=== PATIENT | female | born 1955 ===

== ENCOUNTER 2019-10-28 11:57 | Inpatient (IN) | payer MEDICARE ==
[~2019-10-28] VITALS: Ht 152.4 cm; Wt 86.6 kg
[2019-10-28 13:16] VITALS: BP 144/85
[2019-10-28] MEDS ORDERED: TRAZ50TA66 PO (14:00)
[2019-10-28] MEDS ORDERED: ALEN70TA3 PO (14:00)
[2019-10-28] MEDS ORDERED: MONT10TA11 PO (14:00)
[2019-10-28] MEDS ORDERED: VENL150C6 PO (14:00)
[2019-10-28] MEDS ORDERED: CETI-158 PO (14:00)
[2019-10-28] MEDS ORDERED: BUSP5TAB2 PO (14:00)
[2019-10-28] MEDS ORDERED: ZOLP-413 PO (14:00)
[2019-10-28] MEDS ORDERED: BIFI4CAP PO (14:00)
[2019-10-28] MEDS ORDERED: ERGO500017 PO (14:00)
[2019-10-28] MEDS ORDERED: OMEP-110 PO (14:00)
[2019-10-28] MEDS ORDERED: ALPR0.5T10 PO (14:00)
[2019-10-28] MEDS ORDERED: LEVO75TA5 PO (14:00)
[2019-10-28] MEDS ORDERED: PRAV20TA2 PO (14:00)
[2019-10-28] MEDS ORDERED: ERGOCALCIFEROL 50,000 UNIT CAPSULE PO SCH (18:00)
[2019-10-28] MEDS ORDERED: CETIRIZINE 10 MG TABLET PO PRN (18:00)
[2019-10-28] MEDS ORDERED: POLYETHYLENE GLYCOL 17 GM PACKET PO PRN (18:30)
[2019-10-28] MEDS ORDERED: DOCUSATE 100 MG CAPSULE PO PRN (18:30)
[2019-10-28] MEDS ORDERED: ACETAMINOPHEN 325 MG TABLET PO PRN (18:30)
[2019-10-28] MEDS ORDERED: BISACODYL 10 MG SUPP PR PRN (18:30)
[2019-10-28 19:29] LABS: INTERNATIONAL NORMALIZED RATIO 0.98 (0.93-1.1); PROTHROMBIN TIME 10.4 Seconds (9.6-11.5)
[2019-10-28 19:35] LABS: TROPONIN I < 0.015 ng/mL (0.000-0.045)
[2019-10-28 19:55] VITALS: BP 139/80
[2019-10-28] MEDS: TRAZODONE 50MG TABLET PO SCH (21:04)
[2019-10-28] MEDS: HEPARIN 5,000 UNITS/ML, 1ML SQ SCH (21:04)
[2019-10-28] MEDS: ZOLPIDEM 5MG TABLET PO SCH (21:04)
[2019-10-28] MEDS: BUSPIRONE 5 MG TABLET PO SCH (21:04)
[2019-10-29 01:33] LABS: TROPONIN I < 0.015 ng/mL (0.000-0.045)
[2019-10-29 02:00] VITALS: BP 132/75
[2019-10-29] MEDS: ASPIRIN 325 MG TABLET EC PO SCH (05:12)
[2019-10-29] MEDS: HEPARIN 5,000 UNITS/ML, 1ML SQ SCH ×3 (05:12→21:00)
[2019-10-29 05:26] LABS: BASOPHILS # (AUTO) 0.04 x10^3/uL (0-0.1); BASOPHILS % (AUTO) 0 % (0-1); EOSINOPHILS # (AUTO) 0.22 x10^3/uL (0-0.4); EOSINOPHILS % (AUTO) 2 % (1-7); LYMPHOCYTES # (AUTO) 2.58 x10^3/uL (1-3.4); LYMPHOCYTES % (AUTO) 25 % (22-44); MD NO; MEAN CORPUSCULAR HEMOGLOBIN 30.7 pg (27.0-34.8); MEAN CORPUSCULAR HGB CONC 33.7 g/dL (32.4-35.8); MEAN CORPUSCULAR VOLUME 91.3 fL (80-100); MEAN PLATELET VOLUME 7.9 fL (7.4-10.4); MONOCYTES # (AUTO) 0.72 x10^3/uL (0.2-0.8); MONOCYTES % (AUTO) 7 % (2-9); NEUTROPHILS % (AUTO) 66 % (42-75); PLATELET COUNT 324 x10^3/uL (130-400); RED BLOOD COUNT 4.44 x10^6/uL (3.82-5.3); RED CELL DISTRIBUTION WIDTH 13.6 % (9.6-15.2)
[2019-10-29 05:34] LABS: ALANINE AMINOTRANSFERASE 32 U/L (12-78); ALBUMIN 3.6 g/dL (3.4-5.0); ANION GAP 13 mmol/L (5-15); CALCIUM 8.7 mg/dL (8.5-10.1); CHLORIDE 111 mmol/L (98-107)
[2019-10-29 05:43] LABS: ALKALINE PHOSPHATASE 54 U/L (45-117); BILIRUBIN,TOTAL 0.4 mg/dL (0.2-1.0); CHOL/HDL RATIO 2.3; CHOLESTEROL, TOTAL 198 mg/dL (140-239); CREATININE 1.01 mg/dL (0.55-1.02); HDL CHOL % 43 % (28-40); HDL CHOLESTEROL (DIRECT) 85 mg/dL (40-60); LDL CHOLESTEROL,CALCULATED 91 mg/dL (54-169); LDL/HDL RATIO 1.1 (0.5-3.0); TRIGLYCERIDES 111 mg/dL (50-200); VLDL CHOLESTEROL 22 mg/dL (0-25)
[2019-10-29 06:47] VITALS: BP 101/65
[2019-10-29] MEDS: VENLAFAXINE 75 MG CAP ER PO SCH (07:44)
[2019-10-29] MEDS: OMEPRAZOLE 20 MG CAPSULE.DR PO SCH (07:44)
[2019-10-29] MEDS: MONTELUKAST 10 MG TABLET PO SCH (07:44)
[2019-10-29] MEDS: LACTOBACILLUS CHEW TABLET PO SCH (07:45)
[2019-10-29] MEDS: BUSPIRONE 5 MG TABLET PO SCH ×2 (07:45→21:37)
[2019-10-29] MEDS: LEVOTHYROXINE 75 MCG TABLET PO SCH (07:45)
[2019-10-29] MEDS ORDERED: PRAVASTATIN 20 MG TABLET PO SCH (09:00)
[2019-10-29 12:04] VITALS: BP 130/84
[2019-10-29 19:12] LABS: HCT (SEDRATE) 41.2 % (34.6-47.8)
[2019-10-29 19:22] LABS: ALBUMIN 3.7 g/dL (3.4-5.0); ANION GAP 9 mmol/L (5-15); CALCIUM 8.7 mg/dL (8.5-10.1); CHLORIDE 108 mmol/L (98-107)
[2019-10-29 19:38] VITALS: BP 161/81
[2019-10-29 19:51] LABS: ALANINE AMINOTRANSFERASE 34 U/L (12-78); ALKALINE PHOSPHATASE 63 U/L (45-117); BILIRUBIN,TOTAL 0.7 mg/dL (0.2-1.0); CREATININE 1.07 mg/dL (0.55-1.02); TOTAL PROTEIN 7.6 g/dL (6.4-8.2)
[2019-10-29] MEDS: ZOLPIDEM 5MG TABLET PO SCH (21:37)
[2019-10-29] MEDS: TRAZODONE 50MG TABLET PO SCH (21:37)
[2019-10-29] MEDS: ATORVASTATIN 40 MG TABLET PO SCH (21:37)
[2019-10-29 22:22] LABS: MICROSCOPIC AUTO
[2019-10-30 02:00] VITALS: BP 157/78
[2019-10-30] MEDS: HEPARIN 5,000 UNITS/ML, 1ML SQ SCH ×3 (05:00→21:32)
[2019-10-30 05:13] LABS: BASOPHILS # (AUTO) 0.04 x10^3/uL (0-0.1); BASOPHILS % (AUTO) 1 % (0-1); EOSINOPHILS # (AUTO) 0.32 x10^3/uL (0-0.4); EOSINOPHILS % (AUTO) 4 % (1-7); LYMPHOCYTES # (AUTO) 2.22 x10^3/uL (1-3.4); LYMPHOCYTES % (AUTO) 29 % (22-44); MD NO; MEAN CORPUSCULAR HEMOGLOBIN 30.3 pg (27.0-34.8); MEAN CORPUSCULAR HGB CONC 33.8 g/dL (32.4-35.8); MEAN CORPUSCULAR VOLUME 89.7 fL (80-100); MEAN PLATELET VOLUME 7.8 fL (7.4-10.4); MONOCYTES # (AUTO) 0.57 x10^3/uL (0.2-0.8); MONOCYTES % (AUTO) 7 % (2-9); NEUTROPHILS # (AUTO) 4.61 x10^3/uL (1.8-6.8); NEUTROPHILS % (AUTO) 59 % (42-75); PLATELET COUNT 307 x10^3/uL (130-400); RED BLOOD COUNT 4.36 x10^6/uL (3.82-5.3); RED CELL DISTRIBUTION WIDTH 13.7 % (9.6-15.2)
[2019-10-30 05:18] LABS: ANION GAP 6 mmol/L (5-15); CALCIUM 8.4 mg/dL (8.5-10.1); CHLORIDE 109 mmol/L (98-107)
[2019-10-30 05:20] LABS: CREATININE 0.99 mg/dL (0.55-1.02)
[2019-10-30] MEDS: ASPIRIN 325 MG TABLET EC PO SCH (05:41)
[2019-10-30] MEDS ORDERED: LIDOCAINE-MPF 1%, 5ML ONE (08:16)
[2019-10-30] MEDS: ONDANSETRON 2MG/ML, 2ML IVPush PRN ×2 (09:36→21:31)
[2019-10-30] MEDS: VENLAFAXINE 75 MG CAP ER PO SCH (10:17)
[2019-10-30] MEDS: MONTELUKAST 10 MG TABLET PO SCH (10:17)
[2019-10-30] MEDS: OMEPRAZOLE 20 MG CAPSULE.DR PO SCH (10:17)
[2019-10-30] MEDS: BUSPIRONE 5 MG TABLET PO SCH ×2 (10:18→21:32)
[2019-10-30] MEDS: LEVOTHYROXINE 75 MCG TABLET PO SCH (10:18)
[2019-10-30] MEDS: LACTOBACILLUS CHEW TABLET PO SCH (10:18)
[2019-10-30 10:20] VITALS: BP 128/87
[2019-10-30 12:50] VITALS: BP 114/76
[2019-10-30 19:13] VITALS: BP 126/76
[2019-10-30] MEDS: ATORVASTATIN 40 MG TABLET PO SCH (21:32)
[2019-10-30] MEDS: ZOLPIDEM 5MG TABLET PO SCH (21:32)
[2019-10-30] MEDS: TRAZODONE 50MG TABLET PO SCH (21:32)
[2019-10-31 01:42] VITALS: BP 120/83
[2019-10-31] MEDS: HEPARIN 5,000 UNITS/ML, 1ML SQ SCH ×3 (05:09→21:00)
[2019-10-31] MEDS: ASPIRIN 325 MG TABLET EC PO SCH (05:09)
[2019-10-31 07:05] VITALS: BP 123/77
[2019-10-31] MEDS: LEVOTHYROXINE 75 MCG TABLET PO SCH (09:00)
[2019-10-31] MEDS: LACTOBACILLUS CHEW TABLET PO SCH (09:21)
[2019-10-31] MEDS: MONTELUKAST 10 MG TABLET PO SCH (09:21)
[2019-10-31] MEDS: BUSPIRONE 5 MG TABLET PO SCH ×2 (09:22→21:01)
[2019-10-31] MEDS: OMEPRAZOLE 20 MG CAPSULE.DR PO SCH (09:22)
[2019-10-31] MEDS: VENLAFAXINE 75 MG CAP ER PO SCH (09:31)
[2019-10-31] MEDS: ONDANSETRON 2MG/ML, 2ML IVPush PRN (10:06)
[2019-10-31 13:05] VITALS: BP 126/73
[2019-10-31 15:36] LABS: ANA SCREEN POSITIVE (Negative); ANTI-NUCLEAR ANTIBODY PATTERN HOMOGENOUS
[2019-10-31 20:58] VITALS: BP 143/74
[2019-10-31] MEDS: ATORVASTATIN 40 MG TABLET PO SCH (21:01)
[2019-10-31] MEDS: TRAZODONE 50MG TABLET PO SCH (21:01)
[2019-10-31] MEDS: ZOLPIDEM 5MG TABLET PO SCH (21:01)
[2019-11-01 01:24] VITALS: BP 114/70
[2019-11-01] MEDS: ASPIRIN 325 MG TABLET EC PO SCH (05:45)
[2019-11-01] MEDS: HEPARIN 5,000 UNITS/ML, 1ML SQ SCH (05:45)
[2019-11-01 07:40] VITALS: BP 117/74
[2019-11-01] MEDS: MONTELUKAST 10 MG TABLET PO SCH (08:30)
[2019-11-01] MEDS: ONDANSETRON 2MG/ML, 2ML IVPush PRN (08:30)
[2019-11-01] MEDS: LACTOBACILLUS CHEW TABLET PO SCH (08:30)
[2019-11-01] MEDS: VENLAFAXINE 75 MG CAP ER PO SCH (08:30)
[2019-11-01] MEDS: BUSPIRONE 5 MG TABLET PO SCH (08:31)
[2019-11-01] MEDS: OMEPRAZOLE 20 MG CAPSULE.DR PO SCH (08:31)
[2019-11-01] MEDS: LEVOTHYROXINE 75 MCG TABLET PO SCH (08:31)
== END 2019-11-01 12:22 | disposition home or self-care (01) | DRG 59 ==
LOC: 4EST 13:14 → DCLOUNGE 11-01 12:12
PROVIDERS: ADMIT Hospitalist; ATTEND Hospitalist
PROC: 009U3ZX Drainage of Spinal Canal, Percutaneous Approach, Diagnostic (ICD-10-PCS; principal; 2019-10-30)
PROC: B01B1ZZ Fluoroscopy of Spinal Cord using Low Osmolar Contrast (ICD-10-PCS; 2019-10-30)
DX: G35 Multiple sclerosis (principal); N17.9 Acute kidney failure, unspecified; E03.9 Hypothyroidism, unspecified; E78.5 Hyperlipidemia, unspecified; M79.7 Fibromyalgia; Z66 Do not resuscitate; I73.9 Peripheral vascular disease, unspecified; G47.30 Sleep apnea, unspecified; F32.9 Major depressive disorder, single episode, unspecified; F41.9 Anxiety disorder, unspecified; Z82.5 Family history of asthma and other chronic lower respiratory diseases; Z87.891 Personal history of nicotine dependence; Z90.710 Acquired absence of both cervix and uterus; Z98.84 Bariatric surgery status; Z82.49 Family history of ischemic heart disease and other diseases of the circulatory system
CPT/HCPCS: 36415; 62328; 70551; 72156; 72157; 72158; 80048; 80053; 80061; 81001; 82040; 82042; 82164; 82607; 82784; 83735; 83873; 84100; 84436; 84443; 84484; 85025; 85610; 85613; 85651; 85670; 85705; 85732; 86038; 86039; 86147; 86235; 86255; 86645; 86695; 86696; 86762; 86777; 86778; 87077; 87086; 87186; 93306; 93880; G0378; J1644; J2405; J2930